=== PATIENT | male | born 1995 | race Caucasian/White ===

== ENCOUNTER 2021-12-26 20:41 | Emergency (ER) | payer MEDICAID, OTHER ==
[~2021-12-26] VITALS: Ht 167.6 cm; Wt 63.6 kg
[~2021-12-26 20:41] MED LIST: no meds
[2021-12-27 01:04] VITALS: BP 102/58
== END 2021-12-27 01:27 | disposition home or self-care (01) ==
LOC: EMS 20:45
DX: T40.2X1A Poisoning by other opioids, accidental (unintentional), initial encounter (principal); F12.90 Cannabis use, unspecified, uncomplicated; Y92.89 Other specified places as the place of occurrence of the external cause
CPT/HCPCS: 99283; Z7502

== ENCOUNTER 2022-04-26 06:47 | Emergency (ER) | payer MEDICAID ==
[~2022-04-26] VITALS: Ht 170.2 cm; Wt 68.0 kg
[2022-04-26 06:53] VITALS: BP 125/68
[2022-04-26] MEDS ORDERED: ONDA-104 PO (08:10)
[2022-04-26] MEDS ORDERED: SIME80TA82 PO (08:10)
== END 2022-04-26 08:19 | disposition home or self-care (01) ==
LOC: EMS 06:48
DX: K52.9 Noninfective gastroenteritis and colitis, unspecified (principal); F10.20 Alcohol dependence, uncomplicated; F12.10 Cannabis abuse, uncomplicated
CPT/HCPCS: 99283